=== PATIENT | female | born 1930 | race Caucasian/White ===

== ENCOUNTER 2017-09-19 16:42 | Inpatient (IN) | payer MEDICARE, OTHER ==
[2017-09-19 18:27] LABS: ADD MAN DIFF? NO
[2017-09-19] MEDS: DILTIAZEM 25 MG INJ IV (18:27)
[2017-09-19 18:28] LABS: WHITE BLOOD COUNT 5.9 10^3/ul (4.8-10.8)
[2017-09-19 18:28] LABS: BASOPHIL # 0.1 10^3/ul (0.0-0.1); BASOPHILS % 0.8 % (0.0-2.0); EOSINOPHILS # 0.2 10^3/ul (0.0-0.5); EOSINOPHILS % 3.5 % (0.0-7.0); HEMATOCRIT 37.1 % (37.0-47.0); HEMOGLOBIN 12.2 g/dl (12.0-16.0); LYMPHOCYTES % 17.5 % (15.0-51.0); MEAN CORPUSCULAR HEMOGLOBIN 33.7 pg (29.0-33.0); MEAN CORPUSCULAR HGB CONC 32.9 g/dl (32.0-37.0); MEAN CORPUSCULAR VOLUME 102.5 fl (82.0-101.0); MEAN PLATELET VOLUME 10.7 fl (7.4-10.4); MONOCYTE # 0.9 10^3/ul (0.3-0.9); MONOCYTES % 14.5 % (0.0-11.0); NEUTROPHIL # 3.8 10^3/ul (1.6-7.5); NEUTROPHILS % 63.4 % (39.0-77.0); PLATELET COUNT 135 10^3/UL (140-415); RED BLOOD COUNT 3.62 10^6/ul (4.20-5.40); RED CELL DISTRIBUTION WIDTH 12.9 % (11.5-14.5)
[2017-09-19 18:48] LABS: ANION GAP 11 (8-16); BLOOD UREA NITROGEN 21 mg/dl (7-20); CALCIUM 9.6 mg/dl (8.4-10.2); CARBON DIOXIDE 27 mmol/L (21-31); CHLORIDE 106 mmol/L (97-110); CREATININE 1.16 mg/dl (0.44-1.00); GLUCOSE 107 mg/dl (70-220); POTASSIUM 4.4 mmol/L (3.5-5.1); SODIUM 140 mmol/L (135-144)
[2017-09-19 18:49] LABS: INR 1.07; PT RATIO 1.1
[2017-09-19 18:50] LABS: PARTIAL THROMBOPLASTIN TIME 28.1 Sec (25.0-35.0)
[2017-09-19 18:59] LABS: TROPONIN-I 0.015 ng/ml (0.000-0.120)
[2017-09-19] MEDS: SOD CHLORIDE 0.9% 1,000 ML IV (20:41)
[2017-09-19] MEDS: BIMATOPROST 0.01% 2.5 ML BTL BOTH EYES (20:42)
[2017-09-19] MEDS: TIMOLOL 0.5% 5 ML OPH BOTH EYES (20:42)
[2017-09-19] MEDS: ATORVASTATIN 40 MG TAB PO (20:43)
[2017-09-19] MEDS: DILTIAZEM-D5W 125MG/125ML DRIP 125 ML IV (20:43)
[2017-09-19] MEDS ORDERED: ROSUVASTATIN CALCIUM 40 MG PO (21:00)
[2017-09-20] MEDS: SOD CHLORIDE 0.9% 1,000 ML IV ×2 (04:30→14:30)
[2017-09-20 07:58] LABS: ADD MAN DIFF? NO
[2017-09-20 08:06] LABS: WHITE BLOOD COUNT 5.7 10^3/ul (4.8-10.8)
[2017-09-20 08:06] LABS: BASOPHIL # 0.1 10^3/ul (0.0-0.1); BASOPHILS % 0.9 % (0.0-2.0); EOSINOPHILS # 0.3 10^3/ul (0.0-0.5); EOSINOPHILS % 4.4 % (0.0-7.0); HEMATOCRIT 35.3 % (37.0-47.0); HEMOGLOBIN 11.3 g/dl (12.0-16.0); LYMPHOCYTES # 0.9 10^3/ul (0.8-2.9); LYMPHOCYTES % 15.7 % (15.0-51.0); MEAN CORPUSCULAR HEMOGLOBIN 32.6 pg (29.0-33.0); MEAN CORPUSCULAR VOLUME 101.7 fl (82.0-101.0); MEAN PLATELET VOLUME 11.4 fl (7.4-10.4); MONOCYTE # 0.7 10^3/ul (0.3-0.9); MONOCYTES % 11.5 % (0.0-11.0); NEUTROPHIL # 3.8 10^3/ul (1.6-7.5); NEUTROPHILS % 67.1 % (39.0-77.0); PLATELET COUNT 128 10^3/UL (140-415); RED BLOOD COUNT 3.47 10^6/ul (4.20-5.40); RED CELL DISTRIBUTION WIDTH 13.2 % (11.5-14.5)
[2017-09-20] MEDS: CHOLECALCIFEROL 2,000 UNIT CAP PO (08:44)
[2017-09-20] MEDS: ASPIRIN (EC) 81 MG TAB PO (08:45)
[2017-09-20] MEDS: CLOPIDOGREL 75 MG TAB PO (08:45)
[2017-09-20] MEDS: METOPROLOL (XL) 25 MG TAB PO ×2 (08:47→18:05)
[2017-09-20] MEDS: EZETIMIBE 10 MG TAB PO (08:48)
[2017-09-20] MEDS: CYANOCOBALAMIN 500 MCG TAB PO (08:48)
[2017-09-20 08:49] LABS: ALANINE AMINOTRANSFERASE 81 IU/L (13-69); ALBUMIN 3.4 g/dl (3.3-4.9); ALKALINE PHOSPHATASE 61 IU/L (42-121); ANION GAP 10 (8-16); ASPARTATE AMINO TRANSFERASE 58 IU/L (15-46); BILIRUBIN,INDIRECT 0.6 mg/dl (0-1.1); BILIRUBIN,TOTAL 0.6 mg/dl (0.2-1.3); BLOOD UREA NITROGEN 18 mg/dl (7-20); CALCIUM 9.1 mg/dl (8.4-10.2); CARBON DIOXIDE 28 mmol/L (21-31); CHLORIDE 107 mmol/L (97-110); CREATININE 0.84 mg/dl (0.44-1.00); GLUCOSE 114 mg/dl (70-220); MAGNESIUM 1.7 mg/dl (1.7-2.5); PHOSPHORUS 3.5 mg/dl (2.5-4.9); POTASSIUM 4.1 mmol/L (3.5-5.1); SODIUM 141 mmol/L (135-144); TROPONIN-I 0.046 ng/ml (0.000-0.120)
[2017-09-20] MEDS: ENOXAPARIN 40 MG/0.4 ML SYG SC (08:52)
[2017-09-20] MEDS: TIMOLOL 0.5% 5 ML OPH BOTH EYES ×2 (09:00→20:46)
[2017-09-20] MEDS ORDERED: NON-FORMULARY/PATIENT OWN MED (Cholecalciferol (Vitamin D3) (Vitamin D-3) 2,000 UNIT) PO (09:00)
[2017-09-20] MEDS ORDERED: DOCUSATE SODIUM 100 MG CAP PO (09:00)
[2017-09-20] MEDS: DOCUSATE SODIUM 100 MG CAP PO ×2 (10:51→20:46)
[2017-09-20] MEDS: MAGNESIUM SULFATE 2 GM/50 ML 50 ML IVPB (10:52)
[2017-09-20] MEDS: APIXABAN 5 MG TABLET PO ×2 (11:40→20:46)
[2017-09-20] MEDS: ACETAMINOPHEN 325 MG TAB PO (18:22)
[2017-09-20] MEDS: DILTIAZEM-D5W 125MG/125ML DRIP 125 ML IV (18:46)
[2017-09-20] MEDS: ATORVASTATIN 40 MG TAB PO (20:46)
[2017-09-20] MEDS: BIMATOPROST 0.01% 2.5 ML BTL BOTH EYES (20:46)
[2017-09-20] MEDS: SOD CHLORIDE 0.9% 100 ML (22:52)
[2017-09-20] MEDS: IOHEXOL 100 ML (22:52)
[2017-09-21] MEDS: SOD CHLORIDE 0.9% 1,000 ML IV (04:01)
[2017-09-21 08:10] LABS: ADD MAN DIFF? NO
[2017-09-21 08:25] LABS: WHITE BLOOD COUNT 6.7 10^3/ul (4.8-10.8)
[2017-09-21 08:25] LABS: BASOPHILS % 0.6 % (0.0-2.0); EOSINOPHILS # 0.2 10^3/ul (0.0-0.5); EOSINOPHILS % 2.3 % (0.0-7.0); LYMPHOCYTES # 0.9 10^3/ul (0.8-2.9); LYMPHOCYTES % 13.5 % (15.0-51.0); MEAN CORPUSCULAR HEMOGLOBIN 33.2 pg (29.0-33.0); MEAN CORPUSCULAR HGB CONC 32.4 g/dl (32.0-37.0); MEAN CORPUSCULAR VOLUME 102.7 fl (82.0-101.0); MEAN PLATELET VOLUME 11.4 fl (7.4-10.4); MONOCYTE # 0.7 10^3/ul (0.3-0.9); MONOCYTES % 10.7 % (0.0-11.0); NEUTROPHIL # 4.8 10^3/ul (1.6-7.5); NEUTROPHILS % 72.4 % (39.0-77.0); PLATELET COUNT 125 10^3/UL (140-415); POSITIVE DIFF @See below; RED BLOOD COUNT 3.31 10^6/ul (4.20-5.40); RED CELL DISTRIBUTION WIDTH 13.2 % (11.5-14.5)
[2017-09-21 08:40] LABS: ANION GAP 10 (8-16); BLOOD UREA NITROGEN 18 mg/dl (7-20); CALCIUM 8.9 mg/dl (8.4-10.2); CARBON DIOXIDE 26 mmol/L (21-31); CHLORIDE 106 mmol/L (97-110); CREATININE 0.85 mg/dl (0.44-1.00); GLUCOSE 116 mg/dl (70-220); POTASSIUM 4.1 mmol/L (3.5-5.1); SODIUM 138 mmol/L (135-144)
[2017-09-21 08:41] LABS: AMYLASE 47 U/L (11-123); CHOL/HDL RATIO 2.4 RATIO; CHOLESTEROL 103 mg/dl (100-200); HDL CHOLESTEROL 42 mg/dl (33-92); LDL CHOLESTEROL,CALCULATED 46 mg/dl; MAGNESIUM 2.1 mg/dl (1.7-2.5); TRIGLYCERIDES 74 mg/dl (0-149)
[2017-09-21 08:41] LABS: PHOSPHORUS 3.2 mg/dl (2.5-4.9)
[2017-09-21] MEDS: ASPIRIN (EC) 81 MG TAB PO (09:26)
[2017-09-21] MEDS: EZETIMIBE 10 MG TAB PO (09:26)
[2017-09-21] MEDS: APIXABAN 5 MG TABLET PO ×2 (09:26→22:02)
[2017-09-21] MEDS: CHOLECALCIFEROL 2,000 UNIT CAP PO (09:27)
[2017-09-21] MEDS: CYANOCOBALAMIN 500 MCG TAB PO (09:27)
[2017-09-21] MEDS: TIMOLOL 0.5% 5 ML OPH BOTH EYES ×2 (09:27→22:01)
[2017-09-21] MEDS: DOCUSATE SODIUM 100 MG CAP PO ×2 (09:27→22:01)
[2017-09-21] MEDS: ACETAMINOPHEN 325 MG TAB PO (15:51)
[2017-09-21] MEDS: METOPROLOL (XL) 50 MG TAB PO ×2 (17:09→22:03)
[2017-09-21] MEDS: BIMATOPROST 0.01% 2.5 ML BTL BOTH EYES (22:01)
[2017-09-21] MEDS: ATORVASTATIN 40 MG TAB PO (22:02)
[2017-09-22] MEDS: SOD CHLORIDE 0.9% 1,000 ML IV (00:01)
[2017-09-22] MEDS: ASPIRIN (EC) 81 MG TAB PO (08:39)
[2017-09-22] MEDS: CYANOCOBALAMIN 500 MCG TAB PO (08:39)
[2017-09-22] MEDS: CHOLECALCIFEROL 2,000 UNIT CAP PO (08:39)
[2017-09-22] MEDS: METOPROLOL (XL) 50 MG TAB PO ×2 (08:39→21:32)
[2017-09-22] MEDS: EZETIMIBE 10 MG TAB PO (08:39)
[2017-09-22] MEDS: TIMOLOL 0.5% 5 ML OPH BOTH EYES ×2 (08:39→21:31)
[2017-09-22] MEDS: DOCUSATE SODIUM 100 MG CAP PO ×2 (08:39→21:32)
[2017-09-22] MEDS: APIXABAN 5 MG TABLET PO ×2 (08:40→21:32)
[2017-09-22] MEDS ORDERED: DILTIAZEM (CD) 120 MG CAP PO (09:00)
[2017-09-22] MEDS: DILTIAZEM (CD) 240 MG CAP PO (12:06)
[2017-09-22] MEDS: ATORVASTATIN 40 MG TAB PO (21:31)
[2017-09-22] MEDS: BIMATOPROST 0.01% 2.5 ML BTL BOTH EYES (21:31)
[2017-09-23] MEDS: TIMOLOL 0.5% 5 ML OPH BOTH EYES (08:15)
[2017-09-23] MEDS: DOCUSATE SODIUM 100 MG CAP PO (08:15)
[2017-09-23] MEDS: METOPROLOL (XL) 50 MG TAB PO (08:16)
[2017-09-23] MEDS: EZETIMIBE 10 MG TAB PO (08:16)
[2017-09-23] MEDS: CHOLECALCIFEROL 2,000 UNIT CAP PO (08:16)
[2017-09-23] MEDS: ASPIRIN (EC) 81 MG TAB PO (08:16)
[2017-09-23] MEDS: DILTIAZEM (CD) 240 MG CAP PO (08:17)
[2017-09-23] MEDS: APIXABAN 5 MG TABLET PO (08:17)
[2017-09-23] MEDS: CYANOCOBALAMIN 500 MCG TAB PO (08:18)
== END 2017-09-23 15:32 | disposition home or self-care (01) | DRG 309 ==
LOC: 6WM 09-21 10:48 → MS4 16:42
DX: I48.91 Unspecified atrial fibrillation (principal); Z68.1 Body mass index [BMI] 19.9 or less, adult; I25.10 Atherosclerotic heart disease of native coronary artery without angina pectoris; R63.4 Abnormal weight loss; E78.5 Hyperlipidemia, unspecified; I10 Essential (primary) hypertension; J44.9 Chronic obstructive pulmonary disease, unspecified; I35.1 Nonrheumatic aortic (valve) insufficiency; E55.9 Vitamin D deficiency, unspecified; Z79.82 Long term (current) use of aspirin
CPT/HCPCS: 71045; 71275; 80048; 80053; 80061; 82150; 83735; 84100; 84443; 84484; 85025; 85610; 85730; 93005; G0378

== ENCOUNTER 2018-01-11 06:33 | Inpatient (IN) | payer MEDICARE, OTHER ==
[2018-01-11 07:56] LABS: ADD MAN DIFF? NO
[2018-01-11 07:58] LABS: WHITE BLOOD COUNT 4.7 10^3/ul (4.8-10.8)
[2018-01-11 07:58] LABS: BASOPHIL # 0.1 10^3/ul (0.0-0.1); BASOPHILS % 1.9 % (0.0-2.0); EOSINOPHILS # 0.3 10^3/ul (0.0-0.5); EOSINOPHILS % 5.6 % (0.0-7.0); HEMATOCRIT 34.6 % (37.0-47.0); HEMOGLOBIN 11.1 g/dl (12.0-16.0); LYMPHOCYTES # 1.1 10^3/ul (0.8-2.9); LYMPHOCYTES % 22.5 % (15.0-51.0); MEAN CORPUSCULAR HEMOGLOBIN 32.1 pg (29.0-33.0); MEAN CORPUSCULAR HGB CONC 32.1 g/dl (32.0-37.0); MEAN PLATELET VOLUME 10.1 fl (7.4-10.4); MONOCYTE # 0.6 10^3/ul (0.3-0.9); MONOCYTES % 13.7 % (0.0-11.0); NEUTROPHIL # 2.6 10^3/ul (1.6-7.5); NEUTROPHILS % 56.1 % (39.0-77.0); PLATELET COUNT 249 10^3/UL (140-415); RED BLOOD COUNT 3.46 10^6/ul (4.20-5.40); RED CELL DISTRIBUTION WIDTH 13.7 % (11.5-14.5)
[2018-01-11] MEDS: SOD CHLORIDE 0.9% 500 ML IV (08:00)
[2018-01-11 08:08] LABS: ADD UMIC YES; UR ASCORBIC ACID NEGATIVE (NEGATIVE); UR BACTERIA FEW /HPF (NONE SEEN); UR BILIRUBIN (Dip) NEGATIVE (NEGATIVE); UR BLOOD (Dip) 3+ mg/dL (NEGATIVE); UR CLARITY CLOUDY (CLEAR); UR COLOR RED (YELLOW); UR GLUCOSE (Dip) 1+ mg/dL (NEGATIVE); UR KETONES (Dip) TRACE mg/dL (NEGATIVE); UR LEUKOCYTE ESTERASE (Dip) 2+ Leu/ul (NEGATIVE); UR NITRITE (Dip) NEGATIVE (NEGATIVE); UR NONSQUAMOUS EPITHELIAL CELL 6 /HPF (NONE SEEN); UR RBC > 182 /HPF (0-5); UR SPECIFIC GRAVITY (Dip) 1.011 (1.003-1.030); UR TOTAL PROTEIN (Dip) 2+ mg/dl (NEGATIVE); UR UROBILINOGEN (Dip) NEGATIVE (NEGATIVE); UR WBC > 182 /HPF (0-5)
[2018-01-11 08:22] LABS: ALANINE AMINOTRANSFERASE 21 IU/L (13-69); ALBUMIN 3.9 g/dl (3.3-4.9); ALBUMIN/GLOBULIN RATIO 1.56; ALKALINE PHOSPHATASE 81 IU/L (42-121); ANION GAP 10 (5-13); ASPARTATE AMINO TRANSFERASE 21 IU/L (15-46); BILIRUBIN,INDIRECT 0.2 mg/dl (0-1.1); BILIRUBIN,TOTAL 0.2 mg/dl (0.2-1.3); BLOOD UREA NITROGEN 23 mg/dl (7-20); CALCIUM 9.3 mg/dl (8.4-10.2); CARBON DIOXIDE 30 mmol/L (21-31); CHLORIDE 103 mmol/L (97-110); GLUCOSE 127 mg/dl (70-220); LIPASE 81 U/L (23-300); POTASSIUM 3.7 mmol/L (3.5-5.1); SODIUM 143 mmol/L (135-144); TOTAL PROTEIN 6.4 g/dl (6.1-8.1)
[2018-01-11 08:27] LABS: INR 1.18; PROTIME 15.2 Sec (11.9-14.9); PT RATIO 1.2
[2018-01-11 08:28] LABS: PARTIAL THROMBOPLASTIN TIME 31.4 Sec (23.0-35.0)
[2018-01-11 08:34] LABS: TROPONIN-I 0.014 ng/ml (0.000-0.120)
[2018-01-11] MEDS: CEFTRIAXONE 1 GM/50 ML (PMX) 50 ML IVPB (08:34)
[2018-01-11 09:41] LABS: DIGOXIN 0.5 ng/ml (1.0-2.0)
[2018-01-11] MEDS: IBUPROFEN 600 MG TAB PO (10:48)
[2018-01-11] MEDS ORDERED: NITROGLYCERIN (SL) 0.4 MG TAB SL (12:30)
[2018-01-11] MEDS ORDERED: NACL 0.9% 3 ML SYG IV (12:30)
[2018-01-11] MEDS ORDERED: ZOLPIDEM 5 MG TAB PO (12:30)
[2018-01-11] MEDS: DEXTROSE 5%-0.45% NACL 1,000 ML IV ×2 (12:47→21:42)
[2018-01-11] MEDS: DIGOXIN 0.125 MG TAB PO (13:04)
[2018-01-11] MEDS: ACETAMINOPHEN 325 MG TAB PO (21:48)
[2018-01-12 07:17] LABS: HEMOGLOBIN A1C 5.4 % (0-5.9)
[2018-01-12] MEDS: CEFTRIAXONE 1 GM/50 ML (PMX) 50 ML IVPB (07:50)
[2018-01-12] MEDS: DEXTROSE 5%-0.45% NACL 1,000 ML IV (07:50)
[2018-01-12 07:59] LABS: DIGOXIN 0.8 ng/ml (1.0-2.0)
[2018-01-12] MEDS: EZETIMIBE 10 MG TAB PO (08:47)
[2018-01-12] MEDS: CHOLECALCIFEROL 2,000 UNIT CAP PO (08:47)
[2018-01-12] MEDS: CYANOCOBALAMIN 500 MCG TAB PO (08:47)
[2018-01-12] MEDS: DIGOXIN 0.125 MG TAB PO (12:43)
[2018-01-12] MEDS: ACETAMINOPHEN 325 MG TAB PO (13:47)
[2018-01-13 07:37] LABS: ADD MAN DIFF? NO
[2018-01-13 07:47] LABS: BASOPHIL # 0.1 10^3/ul (0.0-0.1); BASOPHILS % 1.1 % (0.0-2.0); EOSINOPHILS # 0.6 10^3/ul (0.0-0.5); EOSINOPHILS % 8.7 % (0.0-7.0); HEMATOCRIT 31.6 % (37.0-47.0); LYMPHOCYTES # 1.6 10^3/ul (0.8-2.9); LYMPHOCYTES % 23.3 % (15.0-51.0); MEAN CORPUSCULAR HEMOGLOBIN 31.9 pg (29.0-33.0); MEAN CORPUSCULAR HGB CONC 31.6 g/dl (32.0-37.0); MEAN PLATELET VOLUME 10.4 fl (7.4-10.4); MONOCYTE # 0.9 10^3/ul (0.3-0.9); MONOCYTES % 13.2 % (0.0-11.0); NEUTROPHIL # 3.8 10^3/ul (1.6-7.5); NEUTROPHILS % 53.6 % (39.0-77.0); PLATELET COUNT 235 10^3/UL (140-415); RED BLOOD COUNT 3.13 10^6/ul (4.20-5.40); RED CELL DISTRIBUTION WIDTH 13.9 % (11.5-14.5)
[2018-01-13 08:04] LABS: ALANINE AMINOTRANSFERASE 20 IU/L (13-69); ALBUMIN 3.2 g/dl (3.3-4.9); ALBUMIN/GLOBULIN RATIO 1.33; ALKALINE PHOSPHATASE 66 IU/L (42-121); ANION GAP 9 (5-13); ASPARTATE AMINO TRANSFERASE 18 IU/L (15-46); BLOOD UREA NITROGEN 14 mg/dl (7-20); CALCIUM 9.1 mg/dl (8.4-10.2); CARBON DIOXIDE 29 mmol/L (21-31); CHLORIDE 107 mmol/L (97-110); CREATININE 0.69 mg/dl (0.44-1.00); GLUCOSE 104 mg/dl (70-220); SODIUM 145 mmol/L (135-144); TOTAL PROTEIN 5.6 g/dl (6.1-8.1)
[2018-01-13] MEDS: CYANOCOBALAMIN 500 MCG TAB PO (08:43)
[2018-01-13] MEDS: CHOLECALCIFEROL 2,000 UNIT CAP PO (08:43)
[2018-01-13] MEDS: EZETIMIBE 10 MG TAB PO (08:44)
[2018-01-13] MEDS: CEFTRIAXONE 1 GM/50 ML (PMX) 50 ML IVPB (08:44)
[2018-01-13] MEDS: BISACODYL (EC) 5 MG TAB PO (09:45)
[2018-01-13] MEDS: SOD CHLORIDE 0.9% 100 ML (11:40)
[2018-01-13] MEDS: IODIXANOL LOCM 100 ML BTL (11:41)
[2018-01-13] MEDS: DIGOXIN 0.125 MG TAB PO (14:10)
[2018-01-13] MEDS: ACETAMINOPHEN 325 MG TAB PO (23:10)
[2018-01-14 06:19] LABS: ADD MAN DIFF? NO
[2018-01-14 06:38] LABS: BASOPHIL # 0.1 10^3/ul (0.0-0.1); BASOPHILS % 1.2 % (0.0-2.0); EOSINOPHILS # 0.5 10^3/ul (0.0-0.5); EOSINOPHILS % 7.5 % (0.0-7.0); LYMPHOCYTES # 1.5 10^3/ul (0.8-2.9); LYMPHOCYTES % 23.2 % (15.0-51.0); MEAN CORPUSCULAR HEMOGLOBIN 31.3 pg (29.0-33.0); MEAN CORPUSCULAR HGB CONC 31.3 g/dl (32.0-37.0); MEAN CORPUSCULAR VOLUME 100.3 fl (82.0-101.0); MEAN PLATELET VOLUME 10.5 fl (7.4-10.4); MONOCYTE # 0.8 10^3/ul (0.3-0.9); MONOCYTES % 12.3 % (0.0-11.0); NEUTROPHIL # 3.6 10^3/ul (1.6-7.5); NEUTROPHILS % 55.5 % (39.0-77.0); PLATELET COUNT 236 10^3/UL (140-415); RED BLOOD COUNT 3.19 10^6/ul (4.20-5.40)
[2018-01-14 06:38] LABS: WHITE BLOOD COUNT 6.4 10^3/ul (4.8-10.8)
[2018-01-14 07:27] LABS: ADD UMIC YES; UR ASCORBIC ACID NEGATIVE (NEGATIVE); UR BILIRUBIN (Dip) NEGATIVE (NEGATIVE); UR BLOOD (Dip) 2+ mg/dL (NEGATIVE); UR BUDDING YEAST FEW /HPF (NONE SEEN); UR CLARITY SLIGHTLY CLOUDY (CLEAR); UR COLOR YELLOW (YELLOW); UR GLUCOSE (Dip) NEGATIVE (NEGATIVE); UR KETONES (Dip) NEGATIVE (NEGATIVE); UR LEUKOCYTE ESTERASE (Dip) 1+ Leu/ul (NEGATIVE); UR NITRITE (Dip) NEGATIVE (NEGATIVE); UR RBC 42 /HPF (0-5); UR SPECIFIC GRAVITY (Dip) 1.017 (1.003-1.030); UR TOTAL PROTEIN (Dip) 1+ mg/dl (NEGATIVE); UR UROBILINOGEN (Dip) NEGATIVE (NEGATIVE); UR WBC 141 /HPF (0-5)
[2018-01-14 07:31] LABS: ALANINE AMINOTRANSFERASE 20 IU/L (13-69); ALBUMIN 3.3 g/dl (3.3-4.9); ALBUMIN/GLOBULIN RATIO 1.17; ALKALINE PHOSPHATASE 73 IU/L (42-121); ANION GAP 9 (5-13); ASPARTATE AMINO TRANSFERASE 22 IU/L (15-46); BILIRUBIN,INDIRECT 0.2 mg/dl (0-1.1); BILIRUBIN,TOTAL 0.2 mg/dl (0.2-1.3); BLOOD UREA NITROGEN 14 mg/dl (7-20); CALCIUM 9.2 mg/dl (8.4-10.2); CARBON DIOXIDE 29 mmol/L (21-31); CHLORIDE 105 mmol/L (97-110); CREATININE 0.71 mg/dl (0.44-1.00); GLUCOSE 101 mg/dl (70-220); POTASSIUM 3.8 mmol/L (3.5-5.1); SODIUM 143 mmol/L (135-144); TOTAL PROTEIN 6.1 g/dl (6.1-8.1)
[2018-01-14] MEDS: CEFTRIAXONE 1 GM/50 ML (PMX) 50 ML IVPB (08:39)
[2018-01-14] MEDS: EZETIMIBE 10 MG TAB PO (08:39)
[2018-01-14] MEDS: CYANOCOBALAMIN 500 MCG TAB PO (08:39)
[2018-01-14] MEDS: CHOLECALCIFEROL 2,000 UNIT CAP PO (08:39)
[2018-01-14] MEDS: DOCUSATE SODIUM 100 MG CAP PO ×2 (09:00→21:27)
[2018-01-14] MEDS ORDERED: MAGNESIUM HYDROXIDE 30ML CUP PO (09:00)
[2018-01-14 11:55] LABS: INR 1.01; PROTIME 13.4 Sec (11.9-14.9)
[2018-01-14 11:56] LABS: PARTIAL THROMBOPLASTIN TIME 29.1 Sec (23.0-35.0)
[2018-01-14] MEDS: DIGOXIN 0.125 MG TAB PO (12:26)
[2018-01-15] MEDS: DOCUSATE SODIUM 100 MG CAP PO ×2 (09:05→20:06)
[2018-01-15] MEDS: CYANOCOBALAMIN 500 MCG TAB PO (09:05)
[2018-01-15] MEDS: CEFTRIAXONE 1 GM/50 ML (PMX) 50 ML IVPB (09:05)
[2018-01-15] MEDS: CHOLECALCIFEROL 2,000 UNIT CAP PO (09:05)
[2018-01-15] MEDS: EZETIMIBE 10 MG TAB PO (09:05)
[2018-01-15] MEDS: DIGOXIN 0.125 MG TAB PO (14:46)
[2018-01-16] MEDS: DOCUSATE SODIUM 100 MG CAP PO ×2 (08:33→20:29)
[2018-01-16] MEDS: CYANOCOBALAMIN 500 MCG TAB PO (08:33)
[2018-01-16] MEDS: CHOLECALCIFEROL 2,000 UNIT CAP PO (08:34)
[2018-01-16] MEDS: EZETIMIBE 10 MG TAB PO (08:34)
[2018-01-16] MEDS: CEFTRIAXONE 1 GM/50 ML (PMX) 50 ML IVPB (08:35)
[2018-01-16] MEDS: DIGOXIN 0.125 MG TAB PO (08:37)
[2018-01-17 05:44] LABS: ADD MAN DIFF? NO
[2018-01-17 05:47] LABS: BASOPHIL # 0.1 10^3/ul (0.0-0.1); BASOPHILS % 1.7 % (0.0-2.0); EOSINOPHILS # 0.4 10^3/ul (0.0-0.5); EOSINOPHILS % 6.6 % (0.0-7.0); HEMOGLOBIN 10.1 g/dl (12.0-16.0); LYMPHOCYTES # 1.5 10^3/ul (0.8-2.9); LYMPHOCYTES % 24.4 % (15.0-51.0); MEAN CORPUSCULAR HEMOGLOBIN 31.3 pg (29.0-33.0); MEAN CORPUSCULAR HGB CONC 31.6 g/dl (32.0-37.0); MEAN CORPUSCULAR VOLUME 99.1 fl (82.0-101.0); MEAN PLATELET VOLUME 10.4 fl (7.4-10.4); MONOCYTE # 0.8 10^3/ul (0.3-0.9); MONOCYTES % 12.6 % (0.0-11.0); NEUTROPHIL # 3.2 10^3/ul (1.6-7.5); NEUTROPHILS % 54.4 % (39.0-77.0); PLATELET COUNT 227 10^3/UL (140-415); RED BLOOD COUNT 3.23 10^6/ul (4.20-5.40); RED CELL DISTRIBUTION WIDTH 14.6 % (11.5-14.5)
[2018-01-17 06:38] LABS: ALANINE AMINOTRANSFERASE 30 IU/L (13-69); ALBUMIN 3.3 g/dl (3.3-4.9); ALBUMIN/GLOBULIN RATIO 1.32; ALKALINE PHOSPHATASE 68 IU/L (42-121); ANION GAP 6 (5-13); ASPARTATE AMINO TRANSFERASE 25 IU/L (15-46); BILIRUBIN,INDIRECT 0.1 mg/dl (0-1.1); BILIRUBIN,TOTAL 0.1 mg/dl (0.2-1.3); BLOOD UREA NITROGEN 13 mg/dl (7-20); CALCIUM 9.2 mg/dl (8.4-10.2); CARBON DIOXIDE 31 mmol/L (21-31); CHLORIDE 105 mmol/L (97-110); CREATININE 0.53 mg/dl (0.44-1.00); GLUCOSE 102 mg/dl (70-220); SODIUM 142 mmol/L (135-144); TOTAL PROTEIN 5.8 g/dl (6.1-8.1)
[2018-01-17] MEDS ORDERED: FENTAnyl 50 MCG/ML VIAL IV ×2 (07:30)
[2018-01-17] MEDS ORDERED: LABETALOL HCL 20MG INJ IV (07:30)
[2018-01-17] MEDS ORDERED: HYDROmorphONE 1 MG/5 ML IV SYRINGE IV ×2 (07:30)
[2018-01-17] MEDS ORDERED: MEPERIDINE 25 MG INJ IV (07:30)
[2018-01-17] MEDS ORDERED: DIPHENHYDRAMINE 50 MG INJ IV (07:30)
[2018-01-17] MEDS ORDERED: METOCLOPRAMIDE 10 MG INJ IV (07:30)
[2018-01-17] MEDS ORDERED: ONDANSETRON 4 MG INJ IV (07:30)
[2018-01-17] MEDS ORDERED: FENTAnyl 50 MCG/ML VIAL (07:35)
[2018-01-17] MEDS ORDERED: PHENYLephrine (100 MCG/ML) 5ML SYG (07:58)
[2018-01-17] MEDS ORDERED: ROCURONIUM 50 MG INJ (08:04)
[2018-01-17] MEDS ORDERED: LIDOCAINE 100 MG SYRINGE (08:04)
[2018-01-17] MEDS ORDERED: PROPOFOL 20 ML (08:04)
[2018-01-17] MEDS ORDERED: SUGAMMADEX SODIUM 200 MG/2 ML VIAL IV (08:04)
[2018-01-17] MEDS ORDERED: CEFAZOLIN 1 GM INJ (08:04)
[2018-01-17] MEDS ORDERED: SUCCINYLCHOLINE CHLORIDE 100 MG/5 ML SYG IV (08:04)
[2018-01-17] MEDS: IOHEXOL 300MG/ML 30 ML BTL (08:16)
[2018-01-17] MEDS: CYANOCOBALAMIN 500 MCG TAB PO (09:00)
[2018-01-17] MEDS: EZETIMIBE 10 MG TAB PO (10:22)
[2018-01-17] MEDS: CEFTRIAXONE 1 GM/50 ML (PMX) 50 ML IVPB (10:22)
[2018-01-17] MEDS: CHOLECALCIFEROL 2,000 UNIT CAP PO (10:23)
[2018-01-17] MEDS: DOCUSATE SODIUM 100 MG CAP PO ×2 (10:23→20:27)
[2018-01-17] MEDS: DIGOXIN 0.125 MG TAB PO (14:16)
[2018-01-18 05:23] LABS: ADD MAN DIFF? NO
[2018-01-18 05:24] LABS: BASOPHIL # 0.1 10^3/ul (0.0-0.1); BASOPHILS % 1.1 % (0.0-2.0); EOSINOPHILS # 0.4 10^3/ul (0.0-0.5); EOSINOPHILS % 5.6 % (0.0-7.0); HEMATOCRIT 32.4 % (37.0-47.0); HEMOGLOBIN 10.4 g/dl (12.0-16.0); LYMPHOCYTES # 1.3 10^3/ul (0.8-2.9); MEAN CORPUSCULAR HEMOGLOBIN 31.6 pg (29.0-33.0); MEAN CORPUSCULAR HGB CONC 32.1 g/dl (32.0-37.0); MEAN CORPUSCULAR VOLUME 98.5 fl (82.0-101.0); MEAN PLATELET VOLUME 10.3 fl (7.4-10.4); MONOCYTE # 0.8 10^3/ul (0.3-0.9); MONOCYTES % 12.6 % (0.0-11.0); NEUTROPHIL # 3.8 10^3/ul (1.6-7.5); NEUTROPHILS % 60.4 % (39.0-77.0); PLATELET COUNT 234 10^3/UL (140-415); RED BLOOD COUNT 3.29 10^6/ul (4.20-5.40); RED CELL DISTRIBUTION WIDTH 14.6 % (11.5-14.5)
[2018-01-18 05:24] LABS: WHITE BLOOD COUNT 6.3 10^3/ul (4.8-10.8)
[2018-01-18] MEDS: CYANOCOBALAMIN 500 MCG TAB PO (08:57)
[2018-01-18] MEDS: CHOLECALCIFEROL 2,000 UNIT CAP PO (08:57)
[2018-01-18] MEDS: EZETIMIBE 10 MG TAB PO (08:57)
[2018-01-18] MEDS: DOCUSATE SODIUM 100 MG CAP PO (08:57)
== END 2018-01-18 11:08 | disposition home or self-care (01) | DRG 669 ==
LOC: E/R 06:33 → PP2 08:27
PROC: 0TBB8ZX Excision of Bladder, Via Natural or Artificial Opening Endoscopic, Diagnostic (ICD-10-PCS; principal; 2018-01-17 07:30)
PROC: 0T5B8ZZ Destruction of Bladder, Via Natural or Artificial Opening Endoscopic (ICD-10-PCS; 2018-01-17 07:30)
PROC: BT14ZZZ Fluoroscopy of Kidneys, Ureters and Bladder (ICD-10-PCS; 2018-01-17 07:30)
DX: N30.41 Irradiation cystitis with hematuria (principal); Z68.1 Body mass index [BMI] 19.9 or less, adult; I48.2 Chronic atrial fibrillation; I25.10 Atherosclerotic heart disease of native coronary artery without angina pectoris; R63.4 Abnormal weight loss; R91.8 Other nonspecific abnormal finding of lung field; I10 Essential (primary) hypertension; E78.5 Hyperlipidemia, unspecified; D50.0 Iron deficiency anemia secondary to blood loss (chronic); H40.9 Unspecified glaucoma; L40.9 Psoriasis, unspecified; Z95.5 Presence of coronary angioplasty implant and graft; Z85.42 Personal history of malignant neoplasm of other parts of uterus; Z96.643 Presence of artificial hip joint, bilateral; Z90.710 Acquired absence of both cervix and uterus; Z85.828 Personal history of other malignant neoplasm of skin; Z79.01 Long term (current) use of anticoagulants; Z79.82 Long term (current) use of aspirin; Z87.891 Personal history of nicotine dependence; Y84.2 Radiological procedure and radiotherapy as the cause of abnormal reaction of the patient, or of later complication, without mention of misadventure at the time of the procedure
CPT/HCPCS: 36415; 71045; 74176; 74177; 76856; 80053; 80162; 81001; 83036; 83690; 84484; 85025; 85610; 85730; 87086; 88104; 88305; 93005; 99285-25; G0378